=== PATIENT | female | born 1955 | race Caucasian/White ===

== ENCOUNTER 2018-01-26 15:36 | Emergency (ER) | payer OTHER ==
[~2018-01-26] VITALS: Ht 170.2 cm; Wt 85.7 kg
[~2018-01-26 15:36] MED LIST: AMBIEN10 MG PO; ATORVASTATIN CA20 MG PO; BISOPROLOL-HCT1 EACH PO; BUSPIRONE HCL10 MG PO; CIPRO500 MG PO; COLCRYS0.6 MG PO; DIPHENHYDRAMINE25 MG PO; DOCUSATE SODIU100 MG PO; FLAGYL500 MG PO; IBUPROFEN800 MG PO; NORCO 5-325 TA1 EACH PO; RANITIDINE HCL150 MG PO; VITAMIN D250000 UNIT PO; ZOFRAN ODT4 MG PO; ZOFRAN ODT4 MG SL; ZOLPIDEM TARTRA10 MG PO
[2018-01-26] MEDS ORDERED: PAROXETINE HCL10 MG PO (15:55)
[2018-01-26] MEDS ORDERED: METFORMIN HCL500 M1 PO (15:55)
[2018-01-26] MEDS ORDERED: AMITRIPTYLINE H10 MG PO (15:56)
[2018-01-26] MEDS ORDERED: RANITIDINE HCL150 MG PO (15:57)
[2018-01-26] MEDS ORDERED: IBUPROFEN800 MG PO (15:58)
[2018-01-26] MEDS ORDERED: ATORVASTATIN CA40 MG PO (15:58)
== END 2018-01-26 19:56 | disposition home or self-care (01) ==
LOC: ED 15:36
DX: E11.65 Type 2 diabetes mellitus with hyperglycemia (principal); I10 Essential (primary) hypertension; Z87.891 Personal history of nicotine dependence; Z88.2 Allergy status to sulfonamides; Z88.5 Allergy status to narcotic agent; Z88.8 Allergy status to other drugs, medicaments and biological substances; Z79.899 Other long term (current) drug therapy; Z79.84 Long term (current) use of oral hypoglycemic drugs
CPT/HCPCS: 80053; 81001; 82010; 82803; 83690; 85025; 99283

== ENCOUNTER 2024-11-25 05:50 | Day surgery (SDC) | payer MEDICARE, OTHER ==
[~2024-11-25] VITALS: Ht 170.2 cm; Wt 77.5 kg
[~2024-11-25 05:50] MED LIST changes: +ACETAMINOPHEN500 MG PO; +AMITRIPTYLINE H10 MG PO; +ASPIRIN81 MG PO; +ATORVASTATIN CA40 MG PO; +BIOTIN5 M1 PO; +BUPROPION XL150 MG PO; +BUSPIRONE HCL30 MG PO; +DULOXETINE HCL60 MG PO; +GABAPENTIN600 MG PO; +GABAPENTIN800 MG PO; +INSULIN GL100 UNIT/2 SUB-Q; +LACTATED RINGER'S 1,000 ML IV SCH; +LANTUS100 UNITS/ SUB-Q; +METFORMIN HCL500 M1 PO; +METHIMAZOLE10 MG PO; +MIRTAZAPINE7.5 MG PO; +NORVASC5 MG PO; +OMEPRAZOLE40 MG PO; +OXYCODON-ACETA1 EAC2 PO; +PAROXETINE HCL10 MG PO; +PROPRANOLOL HCL10 MG PO; +TRULICITY0.75 MG/0.; +VICTOZA 3-0.6 MG/0.1 SUB-Q; +VITAMIN D21250 MCG PO
[2024-11-25 06:05] VITALS: BP 165/87
[2024-11-25] MEDS ORDERED: METOCLOPRAMIDE HCL 10 MG/2 ML SDV ONE (06:40)
[2024-11-25] MEDS ORDERED: LIDOCAINE HCL 4% 5 ML AMP ONE (06:40)
[2024-11-25] MEDS ORDERED: propofoL 200 MG/20 ML VIAL ONE (06:40)
[2024-11-25] MEDS ORDERED: SUGAMMADEX SODIUM 200 MG/2 ML ML ONE (06:40)
[2024-11-25] MEDS ORDERED: LACTATED RINGER'S 1,000 ML IV ONE (06:40)
[2024-11-25] MEDS ORDERED: ondansetron HCL 4 MG/2 ML VIAL ONE (06:40)
[2024-11-25] MEDS ORDERED: DEXAMETHASONE SOD PHOS 4 MG/ML VIAL ONE (06:40)
[2024-11-25] MEDS ORDERED: KETOROLAC TROMETHAMINE 30 MG/ML VIAL ONE (06:40)
[2024-11-25] MEDS ORDERED: SUCCINYLCHOLINE IN 0.9% NACL 200 MG/10 ML SYRINGE ONE (06:40)
[2024-11-25] MEDS ORDERED: ROCURONIUM BROMIDE 50 MG/5 ML SYR ONE (06:40)
[2024-11-25] MEDS ORDERED: fentaNYL citrate 100 MCG/2 ML VIAL ONE (06:40)
[2024-11-25] MEDS ORDERED: FAMOTIDINE 20 MG/ 2 ML VIAL ONE (06:40)
[2024-11-25] MEDS ORDERED: MIDAZOLAM HCL 2 MG/2 ML VIAL ONE (06:41)
[2024-11-25] MEDS ORDERED: HEParin SOD (PORCINE) 5,000 UNIT/ML SDV SUB-Q SCH (07:00)
[2024-11-25] MEDS ORDERED: CEFAZOLIN SODIUM 2 GM/20 ML SYR IV SCH (07:00)
[2024-11-25] MEDS ORDERED: IBLOOD GLUCOSE TEST STRIP 1 EA TEST VI PRN ×2 (07:00→08:15)
[2024-11-25] MEDS ORDERED: LIDOCAINE HCL 1% 5 ML SDV INJ ONE (07:00)
--- NOTE | 2024-11-25 07:37 | NUR ---
PT NOT AVAILABLE FOR VISIT. PROVIDED PRAYER.
[2024-11-25] MEDS ORDERED: NALOXONE HCL 0.4 MG SYR IV PRN ×2 (08:15→08:45)
[2024-11-25] MEDS ORDERED: ondansetron HCL 4 MG/2 ML VIAL IV PRN ×2 (08:15→08:45)
[2024-11-25] MEDS ORDERED: MORPHINE SULFATE 10 MG/ML VIAL IV PRN (08:15)
[2024-11-25] MEDS ORDERED: droPERidol 5 MG/2 ML VIAL IV PRN (08:15)
[2024-11-25] MEDS ORDERED: METOCLOPRAMIDE HCL 10 MG/2 ML SDV IV PRN (08:15)
[2024-11-25] MEDS ORDERED: fentaNYL citrate 50 MCG/ML SDV IV PRN (08:15)
[2024-11-25] MEDS ORDERED: PROCHLORPERAZINE EDISYLATE 10 MG/2 ML VIAL IV PRN ×2 (08:15→08:45)
--- NOTE | 2024-11-25 08:33 | NUR ---
11/25/24 0833 Bridget Hughes 0824-PATIENT ARRIVED TO PACU ON 6L MASK NONAROUSABLE LOG HOOKER DOING JAW THRUST RN RESUMES CARE OF HOLDING JAW TO MAINTAIN OPEN AIRWAY. ORAL AIRWAY IN PLACE. SR IVF INFUSING. DRESSING TO RIGHT CHEST INTACT. 0831-PATIENT REACTIVE TO VERBAL STIMULI LIFTING HEAD OFF PILLOW EYES OPEN VERY DROWSY NOT FOLLOWING COMMANDS ORAL AIRWAY IN PLACE 6L MASK RR EVEN RN NO LONGER DOING JAW THRUST. 0833-PATIENT OPENS MOUTHS ORAL AIRWAY REMOVED. 6L MASK RR EVEN. 100% PATIENT MUMBLING VERY DROWSY CLOSES EYES.
[2024-11-25] MEDS ORDERED: HYDROmorphone HCL 1 MG/ML SYR IV PRN (08:45)
[2024-11-25 09:02] VITALS: BP 149/89
--- NOTE | 2024-11-25 09:15 | NUR ---
0900-PT BACK TO ROOM 7 FROM PACU ON RA. RECEIVED REPORT FROM BEN FARIAS. PT IS DROWSY. RESP EVEN AND UNLABORED. DENIES PAIN AND NAUSEA. PT HAS ICE PACK IN PLACE. PROVIDED PT WITH WATER, COFFEE, AND PUDDING. NO OTHER NEEDS AT THIS TIME. CALL LIGHT WITHIN REACH.
[2024-11-25] MEDS ORDERED: OXYCODONE HCL 5 MG TAB PO PRN (10:00)
[2024-11-25 10:09] VITALS: BP 150/72
--- NOTE | 2024-11-25 10:23 | OR ---
[facility] [address] [place], [place] [address] Signed DATE OF OPERATION: 11/25/2024 SURGEON: Dot Mott MD PREOPERATIVE DIAGNOSIS: Right subcostal trocar site incisional hernia (0.6 cm). POSTOPERATIVE DIAGNOSIS: Right subcostal trocar site incisional hernia (0.6 cm). PROCEDURE: Primary repair of right subcostal trocar site incisional hernia. ESTIMATED BLOOD LOSS: None. INDICATIONS: Lizette is a 69-year-old female I have known for quite some time. I helped her in 2010 for an open sigmoid resection for diverticular disease. She had a phlegmon in her left pelvis and she had to have a ureteral stent. A year later, I repaired her midline incisional hernia with 8.7 x 10.7 cm piece of mesh. She is quite convinced that she had a recurrent hernia near the superior portion of that mesh. She said it was repaired by a surgeon in [facility]. Later, Dr. Zhang did a hysterectomy through a Pfannenstiel incision without difficulties. And then in 2019, Dr. Olsen helped her with the gallbladder with a laparoscopic cholecystectomy. She put the first trocar just below the costal margin for the right rectus muscle above the mesh. She dictated there were a few adhesions around the mesh, but mostly down in her pelvis from her previous hysterectomy. The rest of her trocars were placed out laterally. She closed the trocar site primarily in the right rectus sheath. Lizette has been feeling pain and burning at that trocar site. She said it is worse with activities. She has to take care of her sister who has significant COPD. She can tell when she is helping her sister move around and it is bothering her. In the office, I could not actually feel the hernia. We thought maybe there was a little defect. She can very clearly point to the spot. It is very reminiscent of an epigastric type hernia in that regard. We sent her for an ultrasound. The ultrasound over that area found a small fat containing hernia and possible bowel measuring 1.5 x 1.1 x 1.7 cm. The fascial defect is only 0.6 cm. I had met with Lizette in the office and she had gone over the results with her. She wanted to wait and see how things went. She came back and decided to have it repaired. I gave her our brochure on hernias. We looked at it carefully page by page. She understands the expected intraop and postop course. She understands we normally would use mesh to Electronically Signed By: DOT MOTT MD 11/25/24 1023 PATIENT NAME: LIZETTE ROJAS OPERATIVE REPORT DATE OF : 59 REPORT #: [id number] PHYSICIAN: DOT MOTT MD PCP: CHRIS JAMES DO REPORT IS CONFIDENTIAL AND NOT TO BE RELEASED WITHOUT AUTHORIZATION [address] [address] Signed fix most hernias unless they are quite small. There is risk to the surgery including, but not limited to bleeding, infection, scarring, change in contour of the skin, recurrent hernias and chronic pain. Infection of mesh requiring removal and other unforeseen comorbidities. She had expressed understanding and wished to proceed. DESCRIPTION OF PROCEDURE: I met with Lizette in our preop area. She again was able to point to the hernia slightly below and a little bit lateral to this incision. That would make sense for placement of the trocar. We marked that appropriately. After this, Lizette was taken to the operating room and placed in the supine position under general endotracheal tube anesthesia. She was given preoperative antibiotics along with subcutaneous heparin. SCDs were utilized. We opened her previous incision transversely and then turned it into a hockey-stick incision as we followed the costal margin, maybe 4 cm total. We went down through the adipose tissue. We found some scar tissue as we went and we followed it down to the abdominal wall. We carefully examined the abdominal wall to remove the fat. We found a small area about 0.6 cm that was quite thin in the rectus muscle showing through. We found another spot just slightly below that by about 2 or 3 mm. We used our Pean clamp to splay the rectus muscles along their length and we carefully probed posteriorly. We found no actual posterior defect and no fat or bowel coming through the defect. Since the defect was so small, we simply closed with interrupted [id number] and simple #1 Prolene sutures. We probed around the area carefully and found no other fascial defect. We even took some of the fat off the anterior fascia and we could not find any other fascial defect. After this, we injected local anesthetic in the abdominal wall and subcutaneous tissues. The wound was irrigated and suctioned out until clear. We closed the wound in layers with 3-0 Monocryl suture including the dermis. The skin was closed with a running 5-0 fast absorbing plain gut suture. Dry gauze and tape were then applied. Lizette was then awakened from her anesthesia, extubated in the OR, and taken to recovery room in stable condition. Dot Mott MD ALB/MODL /[id number] cc: Chris James DO Electronically Signed By: DOT MOTT MD 11/25/24 1023 PATIENT NAME: LIZETTE ROJAS OPERATIVE REPORT DATE OF : 59 REPORT #: [id number] PHYSICIAN: DOT MOTT MD PCP: CHRIS JAMES DO REPORT IS CONFIDENTIAL AND NOT TO BE RELEASED WITHOUT AUTHORIZATION [address] [address] Signed Dot Mott MD Copies: CHRIS JAMES ANDREW L MD ~ Electronically Signed By: DOT MOTT MD 11/25/24 1023 PATIENT NAME: LIZETTE ROJAS OPERATIVE REPORT DATE OF : 59 REPORT #: [id number] PHYSICIAN: DOT MOTT MD PCP: CHRIS JAMES DO REPORT IS CONFIDENTIAL AND NOT TO BE RELEASED WITHOUT AUTHORIZATION
--- NOTE | 2024-11-25 10:58 | NUR ---
LE 0945-PT UP TO RESTROOM. GAIT STEADY AND TOLERATED WELL. LE 0950-PT BACK TO ROOM. PT RATES PAIN 5/10. LE 0953-VO PER DR. MOTT FOR OXYCODONE PRN PAIN. LE 1008-PAIN MEDICATION GIVEN PER EMAR. LE 1009-PT LAYING IN BED. RESP EVEN AND UNLABORED. PT RATES PAIN 5/10. DENIES NAUSEA. ICE PACK IN PLACE AND RUNNING. PT DRINKING WATER AND EATING PUDDING. BROTHER IN ROOM. NO OTHER NEEDS AT THIS TIME. CALL LIGHT WITHIN REACH.
--- NOTE | 2024-11-25 11:08 | NUR ---
1034-PT UP TO RESTROOM. GAIT STEADY AND TOLERATED WELL. 1038-PT BACK TO ROOM. PT STATES "PAIN IS GETTING BETTER". PT READY TO GO HOME. PT WILL GET DRESSED. CALL LIGHT WITHIN REACH.
--- NOTE | 2024-11-25 11:10 | NUR ---
1045-PROVIDED PT WITH DISCHARGE INSTRUCTIONS. ALL QUESTIONS ANSWERED. 1047-PT AMBULATES TO WHEELCHAIR AND RIDE PROVIDED TO FRONT OF HOSPITAL WHERE BROTHER WAS WAITING WITH THE CAR.
[2024-11-25] MEDS ORDERED: SEVOFLURANE 250 ML BTL INH ONE (16:35)
== END 2024-11-25 10:47 | disposition home or self-care (01) ==
LOC: DS 05:50
PROVIDERS: ATTEND Colon & Rectal Surgery
PROC: 0WQF0ZZ Repair Abdominal Wall, Open Approach (ICD-10-PCS; principal; 2024-11-25 07:30)
DX: K43.0 Incisional hernia with obstruction, without gangrene (principal); I10 Essential (primary) hypertension; E78.5 Hyperlipidemia, unspecified; E11.40 Type 2 diabetes mellitus with diabetic neuropathy, unspecified; K21.9 Gastro-esophageal reflux disease without esophagitis; F32.A Depression, unspecified; Z79.82 Long term (current) use of aspirin; Z88.2 Allergy status to sulfonamides; Z88.5 Allergy status to narcotic agent; Z88.8 Allergy status to other drugs, medicaments and biological substances
CPT/HCPCS: 00830; A9270; J0330; J0690; J1100; J1644; J1885; J2250; J2405; J2704; J2765; J3010; J3490; J7121

== ENCOUNTER 2025-02-18 15:18 | Emergency (ER) | payer MEDICARE, OTHER ==
[~2025-02-18] VITALS: Ht 170.2 cm; Wt 77.9 kg
[~2025-02-18 15:18] MED LIST changes: -LACTATED RINGER'S 1,000 ML IV SCH
[2025-02-18] MEDS ORDERED: METFORMIN HCL500 M1 PO (15:34)
[2025-02-18] MEDS ORDERED: BISOPROLOL-HCT1 EACH PO (15:35)
[2025-02-18] MEDS ORDERED: AMP/SULBACTAM SOD 3 GM in SODIUM CHLORIDE 0.9% 100 ML IV ONE (15:45)
[2025-02-18 16:44] LABS: BASOPHILS 0.4 % (0.1-1.2); EOSINOPHILS 2.3 % (0.7-5.8); LYMPHOCYTES 21.1 % (19.3-51.7); MCH 30.1 PG (25.6-32.2); MCHC 33.3 g/dL (32.2-35.5); MCV 90.2 fL (79.4-94.8); MONOCYTES 10.1 % (4.7-12.5); NEUTROPHILS 65.9 % (34.0-71.1); PLATELET COUNT 107 K/uL (182-369); RBC 3.99 M/uL (3.93-5.22)
[2025-02-18 16:52] LABS: ALBUMIN 3.3 g/dL (3.4-5.0); ALBUMIN/GLOBULIN RATIO 0.79 (1.1-2.4); ANION GAP 11.8 (7-21); BILIRUBIN, TOTAL 1.3 mg/dL (0.2-1.0); BUN/CREATININE RATIO 10.98 (6.0-28.6); CREATININE, SERUM 0.91 mg/dL (0.55-1.02); POTASSIUM 3.8 mmol/L (3.5-5.1); PROTEIN, TOTAL 7.5 g/dL (6.4-8.2)
[2025-02-18 17:31] VITALS: BP 158/75
== END 2025-02-18 17:31 | disposition short-term general hospital (02) ==
LOC: ED 15:18
PROVIDERS: Emergency Medicine
DX: L03.011 Cellulitis of right finger (principal); I10 Essential (primary) hypertension; E11.9 Type 2 diabetes mellitus without complications; Z87.891 Personal history of nicotine dependence
CPT/HCPCS: 36415; 73140; 80053; 85025; 96365; 99283-25; J0295